=== PATIENT | male | born 1955 | race Caucasian/White ===

== ENCOUNTER → 2021-01-08 | Outpatient (CLI) | payer MEDICARE, OTHER | END | disposition home or self-care (01) | LOC: LABPAT 11:39 | PROVIDERS: ATTEND Orthopaedic Surgery | DX: Z01.812 Encounter for preprocedural laboratory examination (principal); M48.061 Spinal stenosis, lumbar region without neurogenic claudication; Z22.322 Carrier or suspected carrier of Methicillin resistant Staphylococcus aureus | CPT/HCPCS: 86850; 86900; 86901; 87070 ==

== ENCOUNTER 2021-01-20 05:36 | Day surgery (SDC) | payer MEDICARE, OTHER ==
[2021-01-16 09:47] VITALS: BMI 29.8
[~2021-01-20 05:36] MED LIST: ACETAMINOPHEN TAB 500 MG TAB PO PRN; DEXAMETHASONE SOD PHOSPHATE 4 MG/ML 1 ML VIAL IV ONE; GABAPENTIN 300 MG CAP PO PRN; LACTATED RINGERS 1,000 ML IV SCH; MIDAZOLAM 2 MG/2 ML VIAL IV PRN; ONDANSETRON 4 MG/2 ML VIAL IVP PRN; TRANEXAMIC ACID 1,000 MG in SODIUM CHLORIDE 0.9% 100 ML IVPB PRN
[2021-01-20] MEDS ORDERED: HYDROmorphone 0.5 MG/0.5 ML SYRINGE IVP PRN (07:00)
== END 2021-01-20 06:42 | disposition home or self-care (01) ==
LOC: OR 05:36
PROVIDERS: ATTEND Orthopaedic Surgery
DX: M48.061 Spinal stenosis, lumbar region without neurogenic claudication (principal); Z53.8 Procedure and treatment not carried out for other reasons; Z79.82 Long term (current) use of aspirin; Z79.899 Other long term (current) drug therapy; Z98.890 Other specified postprocedural states
CPT/HCPCS: 86850; 86900; 86901

== ENCOUNTER 2021-01-23 08:08 | Day surgery (SDC) | payer MEDICARE, OTHER ==
[2021-01-21 09:35] VITALS: BMI 29.0
--- NOTE | 2021-01-23 07:08 | P.HPOR ---
History of Present Illness H&P Date: 01/15/21 Chief Complaint: Leg pain, weakness [facility] Date of :[birth year] R14 Allergies: Age: 65 year Height: 5'6" Weight: 185 lbs BP:126/74 BMI: 29.86 kg/m2 X-Rays: New xrays taken in office Trauma or injury: No Work-related: No Location: posterior Hand dominance: right HISTORY: Physical Therapy: Yes How many sessions? several no help. Home exercise programs Did it help? No Injections: No Activity Modifications: Yes no help Brace: No 65-year-old male presents on referral from Dr. Lomax in [place] for evaluation of his low back pain and left lower extremity pain and weakness and difficulty with ambulation. The patient states about a week ago he had a flareup have fairly severe back pain and leg pain for which he visited his primary care doctor he was started on a Medrol Dosepak anti-inflammatory medications muscle relaxers and a home exercise program which did not help him at all. He presents today with increasing pain in his back increasing pain that travels down his left lower extremity around the groin area to the medial portion of his left knee and to the great toe on the left side. Patient states that his more painful to walk around he has a pain score of 10 currently while in the room sitting and standing he does not want to sit or stand for any period of time as it is very uncomfortable for him he lines of some weakness in his left lower extremity as well and difficulty with lifting his leg. He denies any bowel or bladder incontinence he denies any perineal numbness or tingling at th is time. The patients' past social, medical, family, surgical history, as well as review of systems, have been reviewed. Please refer to the Neurosurgery History and Physical form that has been scanned in to our electronic medical record system. 14 points review of systems completed and as stated in HPI, all other systems reviewed are negative. Social History: Reviewed, see appropriate section of the chart for details. P3 Family History: Reviewed, see appropriate section of the chart for details. P2 P1 Current Medications: Rx: aspirin 81 mg tablet,delayed release Ref: 0 Instructions: take 1 tablet (81 mg) by oral route once daily Rx: Trintellix Ref: 0 Instructions: 1 daily Rx: vitamin d , Ref: 0 Instructions: 1 daily P1 PHYSICAL EXAMINATION: General: Awake, alert, appropriate for age, in no acute distress. HEENT: No unusual neck masses around region of lateral neck triangle, thyroid, supraclavicular groove Heart: Regular rate and rhythm, normal S1, S2 and no murmur/gallop. Lungs: Clear to auscultation bilaterally with no use of accessory muscles. Extremities: Skin warm and dry without acute lesions, coloration, temperature, skin intact, no tenderness or erythema Integument: Hairy patches: Absent Dorsal skin dimples: Absent Cafe au lait spots: Absent Surgical incisions: none Palpation: Please see Pain drawing on Intake sheet for further detail. Midline spinal tenderness: No E6 Paralumbar tenderness: yes bilateral E6 Parathoracic tenderness: No E6 Buttocks tenderness: No E6 Special findings: None POSTURAL and MUSCULO-SKELETAL EVALUATION: Coronal Balance: Neutral Recumbent testing: Patient is able to lay flat on back Sagittal Balance: Neutral Shoulder Profile: [Level] Pelvic Girdle: [Level] Neck ROM: Unrestricted Lumbar ROM: Unrestricted Shoulder ROM: Symmetric in abduction, ER/IR Hip ROM: Symmetric in abduction, adduction, ER/IR Knee ROM: Symmetric and intact in Flexion / extension VASCULAR STATUS : LEFT RIGHT Wrist Pulses intact intact Pedal Pulses (Dors. pedis & post.tibialis) intact intact Color normal normal Edema Absent Absent NEUROLOGIC EXAMINATION: Mental Status: Awake and alert, fully oriented, with normal attention, concentration and memory, and fluent, appropriate speech. Cranial Nerves: I: Olfactory not tested. II: Visual acuity normal, no visual field deficit noted with confrontation. III,IV: Normal pupillary reflexes & intact extraocular movements without nystagmus. V,: Intact symmetrical facial sensation. VII: Intact symmetrical facial motor movement VIII: Hearing intact. IX,X: Intact gag, swallow, & normal voice. XI: Sternocleidomastoid, trapezius function intact. XII: Tongue midline with normal movements. L'hermitte's Sign: Negative / absent Spurling'Sign: Absent bilaterally. Cubital percussion test: Absent bilaterally. Cherelle-Tinel sign - Carpal region: Absent bilaterally. Straight Leg Raising: Absent bilaterally. Crossed straight leg raise: positive O8 MOTOR EXAM (0-5/5, N/T) STRENGTH RIGHT LEFT Shoulder Abd (not part of the BRIEN score) 5 5 Elbow Flexors 5 5 Elbow Extensor 5 5 Wrist Dorsiflexors 5 5 Finger Abductor 5 5 Track Inspector 5 5 Hip Flexor (Not part of BRIEN Motor score) 5 4 Knee Flexor 5 5 Knee Extensor 5 4 Ankle dorsiflexor 4 5 Ankle plantarflexion 5 4 Extensor hallucis 5 5 REFLEXES(0-4/2, NT) RIGHT LEFT Upper Extremities 2 2 Lower Extremities 2 2 Pathological Reflexes RIGHT LEFT Villatoro's Absent Absent Clonus Absent Absent Babinski Absent Absent # Indicates mechanical impairment Muscle appearance: Symmetrical Sensory system (0-4, N/T) Test type RU MEETA RL LL Joint-Position 2 2 2 2 Vibration 2 2 2 2 Pain & LT sense 2 2 2 2 Dermatomal Deficit: None None None None Gait and Functional Evaluation: Ambulatory aids: Independent Romberg's test: Intact bilaterally Toe heel walk / heel-toe walk intact while maintaining satisfactory balance? yes Squatting/straightening w/o assistance to a min of 60 degree knee flexion? yes Single leg stance: Trendelenburg sign negative bilaterally Hand and finger dexterity intact bilaterally? yes Disdiadochokinesis examination negative bilaterally? yes RADIOGRAPHIC STUDIES: XRAY: AP lateral flexion extension films a lumbar spine obtained and reviewed in the office today and this demonstrates stability through the lumbar spine. Overall alignment is well-maintained there is facet arthrosis from L3 to L5 which is noted and likely stenosis. No fracture dislocation is noted AP pelvis demonstrates congruent pelvis femoral acetabular joints no fracture dislocation MRI of the lumbar spine is reviewed this demonstrates severe stenosis L3 4 and L4 5 with extruded disc herniation L4 5 which is tracking superiorly along the L4 pedicle on the left-hand side. There is severe stenosis related to facet hypertrophy at L4 5 as well. There are no fractures or dislocations noted otherwise no lesions. IMPRESSION AND PLAN: It was my pleasure to have seen and examined Mr Morales. I reviewed the patient's clinical syndrome, physical findings, and imaging studies during the appointment today. It is my impression that the patient has a diagnosis of . 1. 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 LLE radiculopathy severe 4. LLE weakness I outlined the natural course history without intervention and various interventional options. Based on my findings I suggest the following course of action: 1.Gabapentin, Flexeril and pain control as needed. Pt tried conservative measures including medrol, exercisese and this has made his symptoms worse. He is having progressive symptoms at this time and warrents surgical intervention. We discussed injections, however with the degree ofhis stenosis this will likely not help as he needs mechanical decompression. He understood. 2. Schedule for Urgent L3-5 decompressive laminectomy. 3. PCP for clearance In our visit today Mr. Poe and I had a chance to go over my understanding of the patient's current condition, the natural course history without intervention and various interventional options. Questions were invited and answered, and the patient wishes to proceed as outlined above. Past Medical History Past Medical History: Cancer, Eye Disorder, Osteoarthritis (OA) Additional Past Medical History / Comment(s): Severe back pain, radiating down left buttock and leg since end of November 2020. Hx Skin Cancer on head 15 yrs ago. Best Disease (Eye Disorder, also called Vitelliform Macular Dysrophy). Covid Vaccines 09/24/20 and 10/15/20. History of Any Multi-Drug Resistant Organisms: None Reported Past Surgical History: Hernia Repair, Orthopedic Surgery Additional Past Surgical History / Comment(s): Left knee surgery, bilateral catarcats removed with lens implants, eye surgery for lazy eye, vasectomy, removal of skin cancer from head, ruputred tendon to left pinky finger repaired. Past Anesthesia/Blood Transfusion Reactions: No Reported Reaction Past Psychological History: Depression Smoking Status: Never smoker Past Alcohol Use History: Occasional Past Drug Use History: None Reported - Past Family History Father Family Medical History: Cancer Additional Family Medical History / Comment(s): Lung, Colon and Brain Cancer. Brother(s) Family Medical History: Cancer Additional Family Medical History / Comment(s): 2 brother's had skin cancer. Medications and Allergies Home Medications Medication Instructions Recorded Confirmed Type Aspirin [Adult Low Dose Aspirin EC] 81 mg PO DAILY 01/16/21 01/21/21 History Cholecalciferol (Vitamin D3) 125 mcg PO DAILY 01/16/21 01/21/21 History [Vitamin D3 (5000 Iu)] Cyclobenzaprine [Flexeril] 10 mg PO TID 01/16/21 01/21/21 History HYDROcodone/APAP 10-325MG [[place] 1 tab PO Q6HR PRN 01/16/21 01/21/21 History 10-325] Vortioxetine Hydrobromide 50 mg PO QAM 01/16/21 01/21/21 History [Trintellix] Allergies Allergy/AdvReac Type Severity Reaction Status Date / Time No Known Allergies Allergy Verified 01/21/21 12:42 Physical Examination Osteopathic Statement: *. No significant issues noted on an osteopathic structural exam other than those noted in the History and Physical/Consult. Assessment and Plan Plan: Surgical Procedure Risk Review Televisit 22-30 min Jase Morales is a 65 year old male presented for evaluation of sudden onset of Back pain LE pain and weakness. It was my pleasure to have seen and examined Mr. Morales and speak to him over the phone today. In our visit today we have had a chance to go over subjective complaints, physical examination findings and treatments, including the natural course history without intervention and various interventional options. The imaging demonstrates L3-5 stenosis with extruded disc herniation . On physical exam, Mr. Morales demonstrates Low back pain, weakness in LE and RLE pain . I explained to the patient that as his condition progresses it could cause continued symptoms, worsening weakness and symptoms . At this time, based on the patients imaging and physical exam, I recommend surgery in the form or a: L3-5 deompressive laminectomy . I discussed the risk and benefits of this procedure at length with Mr. Morales. The patient agreed to consider pursuing the procedure mentioned above. Plan: 1. L3-5 decompressive laminectomy and discectomy 2. Follow up with PCP for surgical clearance 3. Review of surgical risks and benefits as well as an educational packet on the proposed surgical procedure. Risks: All surgical procedures come with inherent risks, including those related to positioning, anesthesia, intraoperative findings, and postoperative complications. It is important to understand that surgery does not come with any guarantee of a successful outcome as complications and adverse events are always possible. The patient was given a handout in office today discussing the surgical procedure and risks associated with the intervention, both of which were discussed with the patient. These risks include but are not limited to the following: ? Experiencing same, different or even worse symptoms in back, neck, arms, or legs compared to before surgery. ? Requiring further surgery or other forms of treatment presently or at some time in the future at same or other levels of the intended spine surgery. ? On an extreme but fortunately relatively rare basis severe complication such as blindness, stroke, heart attack, temporary and/or permanent nerve injury, paralysis, coma, or may occur, sometimes without known explanation. ? Surgical complications may include but are not limited to risk of infection, fluid accumulation in the surgical dissection site, including a seroma or hematoma, that requires additional surgery, wound drainage, bleeding, new numbness or weakness, vision changes/loss, spinal fluid leakage, non-healing and/or infected incision, headaches, difficulty or inability to swallow, hoarseness, hemopneumothorax, pneumothorax, impotence, retrograde ejaculation, vaginal dryness; injury to nerves, spinal cord, blood vessels, lymphatics or other vital organs (i.e., bowel injury, injury to the great vessels); heterotopic bone formation; complications related to the hardware such as screws, rods, cages including misplaced hardware, device failure, instrumentation at the wrong spine level, hardware fracture/breakage, or hardware loosening; vertebral failure of the spinal column above or below the newly placed hardware; retained surgical instrumentations or devices and the need for further surgery. ? Medical risks of the planned spine surgery include but are not limited to generalized Infections to the whole body or local areas outside of the surgical site (sepsis), heart attack, bleeding, anaphylaxis, meningitis, seizure, epilepsy, hearing loss, burn ugarte, laceration of the head or other areas of the body, bruising, hypersensitivity of the skin, bladder over distension; allergic reaction; shoulder injury related to positioning; fat, blood and air clots to other areas of the body like heart, lungs, brain; failure of internal organs such as lungs, kidneys, liver and excessive bleeding. If blood transfusions are necessary, note that transfusions may cause intolerance reactions such as anaphylaxis or other complex reactions. Despite best efforts, the results of spine surgery might not heal in terms of bone, soft tissues such as skin, fascia, ligaments, and joints. Additionally, in order to achieve best possible results, spine surgery may be carried out beyond the initially planned levels and involve decompression, fusion including insertion of hardware at levels other than the original intended area of surgical interest change some portions of the procedure in order to ensure the best possible outcomes. With spine surgery and spinal fusion, there are different off label uses of instrumentation (devices, implants and hardware) as well as biological substances (bone morphogenic proteins, demineralized bone matrix) as well as using extra bone from allograft sources (i.e. cadaver bone) or autograft (iliac crest bone, ribs, or the spine itself). The patient has been given information about these practices and their inherent risks and benefits. [facility] Physician Assistants are medically trained surgical provider s who function in the outpatient, inpatient, and operating room setting under the direct supervision of the attending surgeon.They assist in the operating room with direct supervision of the attending surgeons. The patient has had a chance to review all the listed information, has been given print outs detailing this information, and has had all his/her questions answered to their satisfaction. It was my pleasure to have seen and examined Mr. Morales. In our visit today we have had a chance to go over my understanding of our patient's current condition, the natural course history without intervention and various interventional options. Questions were invited and answered, and the patient wishes to proceed as outlined above. I have seen and examined the patient for 25 minutes and we have spent more than 50% of the time in repeat and detailed counseling about the patient's condition, its natural course history with out and as much as can be predicted with surgery and re-review of various surgical treatment options. In conclusion,Mr. Morales and his spouse/partner requested we proceed with the above suggested surgery and are willing to accept risks and limitations of the suggested surgery as nature of the disease process and our best attempts at treatment for the condition. Thank you again for allowing us to be part of your patient's care. Please don't hesitate to contact me if you have any further questions. Signed and authenticated by: [facility] [address] [address]
[~2021-01-23 08:08] MED LIST changes: -LACTATED RINGERS 1,000 ML IV SCH; +LIDOCAINE 1% (10MG/ML) FOR IV START INTRADERMA PRN; -MIDAZOLAM 2 MG/2 ML VIAL IV PRN
[2021-01-23] MEDS: LACTATED RINGERS 1,000 ML IV SCH ×3 (08:47→16:18)
[2021-01-23] MEDS ORDERED: SUCCINYLCHOLINE CHLORIDE 100 MG/5 ML SYR IV ONE (10:42)
[2021-01-23] MEDS ORDERED: ceFAZolin 3,000 MG in SODIUM CHLORIDE 0.9% IRRIGATIO 3,000 ML IRRIGATION ONE (10:42)
[2021-01-23] MEDS ORDERED: LIDOCAINE 1% INJ 10MG/ML (20 ML MDV) ONE (10:42)
[2021-01-23] MEDS ORDERED: fentaNYL (PF) 50 MCG/ML 2 ML AMP ONE (10:42)
[2021-01-23] MEDS ORDERED: PHENYLEPHRINE-0.9% NACL SYG 1,000 MCG/10 ML SYRINGE ONE (10:42)
[2021-01-23] MEDS ORDERED: NEOSTIGMINE 1 MG/ML 10 ML VIAL ONE (10:42)
[2021-01-23] MEDS ORDERED: TRANEXAMIC ACID 1,000 MG/10 ML VIAL ONE (10:42)
[2021-01-23] MEDS ORDERED: SODIUM CHLORIDE 0.9% 100 ML BAG ONE (10:42)
[2021-01-23] MEDS ORDERED: PROPOFOL 10 MG/ML 20 ML VIAL IV ONE (10:42)
[2021-01-23] MEDS ORDERED: MIDAZOLAM 2 MG/2 ML VIAL ONE (10:42)
[2021-01-23] MEDS ORDERED: GLYCOPYRROLATE 0.2 MG/ML 2 ML VIAL ONE (10:42)
[2021-01-23] MEDS ORDERED: BUPIVACAINE (PF) 0.5% 30 ML VIAL SQ ONE (11:17)
[2021-01-23] MEDS ORDERED: LACTATED RINGERS 1,000 ML IV ONE (11:56)
[2021-01-23] MEDS ORDERED: VANCOMYCIN 1,000 MG VIAL MISCELLANE ONE (13:12)
--- NOTE | 2021-01-23 13:47 | XR ---
EXAMINATION TYPE: XR lumbar spine 2 or 3V DATE OF EXAM: 01/23/2021 COMPARISON: NONE HISTORY: Laminectomy TECHNIQUE: 3 fluoroscopic spot images of the lumbar spine were submitted for review. Total 16 seconds fluoroscopic time was reported. FINDINGS: Instrumentation of the lower lumbar spine is noted. For full details please see the operative note. IMPRESSION: Instrumentation of the lower lumbar spine is noted. For full details please see the operative note.
[2021-01-23] MEDS ORDERED: HYDROmorphone 1 MG/ML 1 ML SYRINGE IVP ONE (13:50)
[2021-01-23] MEDS: HYDROmorphone 1 MG/ML 1 ML SYRINGE IVP ONE ×2 (13:56→14:17)
[2021-01-23] MEDS ORDERED: SENNOSIDES-DOCUSATE SODIUM 1 EACH TAB PO PRN (14:10)
[2021-01-23] MEDS ORDERED: HYDROcodone/APAP 10-325MG 1 EACH TAB PO PRN (14:10)
[2021-01-23] MEDS ORDERED: HYDROmorphone 0.5 MG/0.5 ML SYRINGE IVP ONE ×2 (14:30→14:42)
--- NOTE | 2021-01-23 15:42 | FL ---
Fluoroscopy HISTORY: Lumbar laminectomy 16 seconds fluoroscopy time supplied to the referring clinician. 3 intraoperative C-arm images docum ent the procedure. See dictated report from orthopedic surgery.
--- NOTE | 2021-01-23 16:05 | P.CONS ---
History of Present Illness - Reason for Consult Consult date: 01/23/21 Medical management Requesting physician: Shaun Chavez - Chief Complaint Low back pain - History of Present Illness This is a 65-year-old male with no significant past medical history other than chronic low back pain who was admitted to the hospital for elective laminectomy. Patient is postoperative day #0. He is doing fairly well. His pain is well- controlled. No complications reported with surgery. I was asked to see him for medical management. Patient denies any medical history otherwise Review of Systems Review of system: 14 points review of systems were obtained and were negative except to what were mentioned in the HPI. Past Medical History Past Medical History: Cancer, Eye Disorder, Osteoarthritis (OA) Additional Past Medical History / Comment(s): Severe back pain, radiating down left buttock and leg since end of November 2020. Hx Skin Cancer on head 15 yrs ago. Best Disease (Eye Disorder, also called Vitelliform Macular Dysrophy). Covid Vaccines 09/24/20 and 10/15/20. History of Any Multi-Drug Resistant Organisms: None Reported Past Surgical History: Hernia Repair, Orthopedic Surgery Additional Past Surgical History / Comment(s): Left knee surgery, bilateral catarcats removed with lens implants, eye surgery for lazy eye, vasectomy, removal of skin cancer from head, ruputred tendon to left pinky finger repaired. Past Anesthesia/Blood Transfusion Reactions: No Reported Reaction Past Psychological History: Depression Smoking Status: Never smoker Past Alcohol Use History: Occasional Past Drug Use History: None Reported - Past Family History Father Family Medical History: Cancer Additional Family Medical History / Comment(s): Lung, Colon and Brain Cancer. Brother(s) Family Medical History: Cancer Additional Family Medical History / Comment(s): 2 brother's had skin cancer. Medications and Allergies Home Medications Medication Instructions Recorded Confirmed Type Aspirin [Adult Low Dose Aspirin EC] 81 mg PO DAILY 01/16/21 01/23/21 History Cholecalciferol (Vitamin D3) 125 mcg PO DAILY 01/16/21 01/23/21 History [Vitamin D3 (5000 Iu)] Cyclobenzaprine [Flexeril] 10 mg PO TID 01/16/21 01/23/21 History HYDROcodone/APAP 10-325MG [[place] 1 tab PO Q6HR PRN 01/16/21 01/23/21 History 10-325] Vortioxetine Hydrobromide 50 mg PO QAM 01/16/21 01/23/21 History [Trintellix] Allergies Allergy/AdvReac Type Severity Reaction Status Date / Time No Known Allergies Allergy Verified 01/23/21 08:52 Physical Exam Vitals: Vital Signs Temp Pulse Pulse Resp BP Pulse Ox 01/23/21 15:29 97.8 F 82 18 135/89 96 01/23/21 15:02 77 16 108/61 98 01/23/21 14:46 76 16 109/55 100 01/23/21 14:30 73 16 118/50 100 01/23/21 14:17 93 16 93/57 100 01/23/21 14:00 74 16 109/65 100 01/23/21 13:45 97.4 F L 79 12 98 01/23/21 09:00 98.1 F 91 16 156/89 97 Intake and Output 01/23/21 01/23/21 01/23/21 06:59 14:59 22:59 Intake Total 1751 600 Output Total 275 Balance 1476 600 Intake: IV 1751 600 Output: Urine 250 Estimated Blood Loss 25 Other: Weight 83.3 kg 83.3 kg General: The patient is awake and alert, in no distress Eye: there is normal conjunctiva bilaterally. Neck: The neck is supple, there is no JVD. Cardiovascular: Normal S1-S2, no S3-S4, no murmurs. Respiratory: Lungs clear to auscultation bilaterally Gastrointestinal: Abdomen is soft, nontender Musculoskeletal: There is no pedal edema. Neurological:. Speech is normal. Skin: Skin is warm and dry Assessment and Plan Assessment: This is a 65-year-old male with past medical history significant for lumbar spine severe stenosis with radiculopathy and disc herniation at L4/L5 was admitted to the hospital for elective lumbar laminectomy. Patient is postoperative day #0. Postoperative care, pain control, and DVT prophylaxis per primary team. I would order lab work in the morning. Today, I reviewed his medication list and lab work results. Continue current regimen. Thank you very much for the consultation. I will follow up on the patient closely with you.
--- NOTE | 2021-01-23 18:18 | CT ---
EXAMINATION TYPE: CT lumbar spine wo con DATE OF EXAM: 01/23/2021 COMPARISON: None HISTORY: Post Op Lspine surgery. CT DLP: 1064.6 mGycm Automated exposure control for dose reduction was used. Images obtained from the level of T12-S3 vertebra without contrast. There is laminectomy defect at L3 and L4. There is soft tissue air posteriorly from the recent surger y. There is also small air bubbles in the spinal canal that appears extradural. The sacroiliac joints appear intact. There is normal alignment of the vertebra. Disc spaces are fairly normal. I see no pa raspinal mass. IMPRESSION: Recent postsurgical changes. Extensive extradural air in the spinal canal. Exam limited with lack of contrast.
[2021-01-23] MEDS: HYDROcodone/APAP 5-325MG 1 EACH TAB PO PRN (19:38)
[2021-01-23] MEDS: CYCLOBENZAPRINE 5 MG TAB PO PRN (19:43)
[2021-01-24] MEDS: LACTATED RINGERS 1,000 ML IV SCH (02:15)
[2021-01-24] MEDS: HYDROcodone/APAP 5-325MG 1 EACH TAB PO PRN ×2 (05:06→11:26)
[2021-01-24] MEDS: CYCLOBENZAPRINE 5 MG TAB PO PRN ×2 (05:06→11:26)
[2021-01-24 08:13] VITALS: BP 111/66; PULSE 91; RESP 17; TEMP 99.2
[2021-01-24] MEDS ORDERED: CHOLECALCIFEROL 25 MCG (1000 IU) TABLET PO SCH (09:00)
[2021-01-24] MEDS ORDERED: VORTIOXETINE HYDROBROMIDE 20 MG TABLET PO SCH (09:00)
[2021-01-24] MEDS ORDERED: ASPIRIN 81 MG PO SCH (09:00)
[2021-01-24 09:50] LABS: African American GFR (CKD) 102.1 (60.0-200.0); Anion Gap 7.3 mmol/L (4.00-12.00); BUN/Creat Ratio 14.44 Ratio (12.00-20.00); Calcium 8.6 mg/dL (8.7-10.3); Carbon Dioxide 28.7 mmol/L (21.6-31.8); Non-African American GFR(CKD) 88.1 (60.0-200.0); Potassium 4.3 mmol/L (3.5-5.5)
[2021-01-24 10:11] LABS: Basophils # (A) 0.06 X 10*3/uL (0.00-0.10); Basophils % (A) 0.7 %; Eosinophils # (A) 0.09 X 10*3/uL (0.04-0.35); Eosinophils % (A) 1.1 %; HCT 41.8 % (39.6-50.0); HGB 13.9 g/dL (13.0-17.0); Lymphocytes % (A) 18.9 %; MCH 30.2 pg (27.0-32.0); MCHC 33.3 g/dL (32.0-37.0); MCV 90.9 fL (80.0-97.0); Mean Platelet Volume 9.3 fL (9.5-12.2); Monocytes # (A) 0.83 X 10*3/uL (0.20-1.00); Monocytes % (A) 9.8 %; Neutrophils # (A) 5.85 X 10*3/uL (1.80-7.70); Neutrophils % (A) 69.3 %; Platelet Count 329 X 10*3/uL (140-440); RDW 12.7 % (11.5-14.5); WBC 8.45 X 10*3/uL (4.50-10.00)
--- NOTE | 2021-01-24 10:39 | P.OP ---
Date of Procedure: 01/23/21 Preoperative Diagnosis: 1. 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 LLE weakness 4. LLE radiculopathy Postoperative Diagnosis: 1. 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 LLE weakness 4. LLE radiculopathy Procedure(s) Performed: 1. L3-L5 bilateral laminectomy and decompression with partial medial facetectomy and foraminotomy b/l 2. L4-5 sequestered disc removal. 3. L4-5 microdiscectomy 4. Dural repair with fat patch graft Implants: NOne Anesthesia: GETA Surgeon: Shaun Chavez Public Relations Professional #1: [employer] (Was present for the entire case and necessary due to the complexity of the case) Estimated Blood Loss (ml): 100 IV fluids (ml): 1,500 Urine output (ml): 200 Condition: stable Disposition: PACU Indications for Procedure: 65-year-old male presented to the office on an outpatient for oral for extreme left lower extremity pain weakness as well as neurogenic claudication symptoms. Patient was seen and evaluated MRI showed large sequestered disc L4 5 region with severe stenosis L3 to L5. We discussed operative versus nonoperative treatments he had tried conservative treatments in the form of medications therapy and in office injections which have not helped him and he was ready for surgical intervention at this time. We discussed the risks and benefits of surgery at length and he was amendable to surgical intervention. Operative Findings: Severe stenosis L3 to L5 with dural erosion L4 5 Large sequestered disc fragment just anterior to L4 exiting root Description of Procedure: The patient was seen and examined in the preoperative area. All preoperative protocols were followed. Informed consent was obtained risks and benefits of the procedure were discussed at length. Risks including bleeding infection damage to the surrounding tissue and risk of reoperation were discussed with the patient. Risk of anesthesia up to and including was a discussed with the patient. These are outlined in the risk review. They were willing to accept these risks and all of the risks of surgery. The patient was given a weight- based dose of antibiotics in the form of 2 g Ancef IVPB 1. The patient was seen and evaluated by the anesthesia team who deemed them fit for surgery. The site was marked, the patient was willing to proceed with the procedure. The patient was transferred to the operative suite by the Department of anesthesia. They were then drifted off to sleep by the department anesthesia GETA. The patient tolerated this well. [Davidson catheter was placed by nursing staff, atraumatically]. Once confirmation of lines and ventilation the patient was transferred to a prone Erickson Bubba table very carefully. All bony prominences including wrists, elbows, axilla, chest, hips, and thighs, and feet were padded very well. Special attention was paid to the genitalia and these were padded accordingly. SCDs were placed on bilateral lower extremities and wer e connected. Arms were well padded and placed [on arm boards up and out in the 90/90 position]. Once in position, again we confirmed good ventilation capabilities and that lines were running appropriately. The patient's lumbar spine was then exposed. 1010s were placed outlining the incision site. Standard alcohol was used to clean the incision site and allowed to dry. C-arm was used to biomark the patient and confirm level for incision which was marked with a skin marker. Operative briefing was performed with all teams and everyone in agreement to proceed. The patient was then prepped and draped in a normal sterile fashion. Timeout was then performed and all parties were in agreement with the procedure to be performed. Previously by marked area was then infiltrated with half percent Marcaine without epinephrine. We then use a skin knife to incise along this line midline and the lumbar spine. Left cautery dissection was taken down to the lumbar fascia which was identified and cleaned with a Daly midline fasciotomy was then performed subperiosteal dissection was taken over the L3 to L5 lamina exposing the facet joints however taking care to preserve the capsules. Lateral fluoroscopy with [place] 4 at the pars of L3 and L4 were then identified the levels. Once this areas were cleaned and visible we then performed a bilateral laminectomy using high-speed bur and rongeur. We performed partial medial facetectomies as well as foraminotomies. The ligamentum flavum was extremely hypertrophied in these areas and it was removed. We then performed bilateral foraminotomies at L3 4 L4 5. There was some dural erosion noted over the posterior aspect midline of the L4 5 region. The arachnoid was still intact however the external dural was not and so this was repaired. We performed a direct repair and a patch repair first the direct repair was performed with 6-0 Prolene. We then performed a Valsalva to 40 and there was no leakage was then placed a fat patch graft with 6-0 Prolene over this area. A Valsalva to 40 was performed again and there was no leakage of CSF. We then explored the L4 5 region we performed a microdiscectomy of L4-L5 and we found a large sequestered disc just anterior to the exiting L4 nerve root this was removed entirely which decompressed the foramen as well as that nerve root entirely. Once this was accomplished we performed meticulous hemostasis throughout using FloSeal patties as well as bipolar electrocautery. We then irrigated the wound with 3 L of antibiotic irrigation followed by 3 L of normal sterile saline. We then placed Surgicel over the dura and the patch graft followed by Tisseel. We then placed another layer of Surgicel and Tisseel. This sealed off the area we performed a Valsalva to 40 and there was no leakage of spinal fluid. We performed again meticulous hemostasis and it was decided at this point not to place a drain as there was no leakage. We then placed vancomycin deep within the wound and pro ceeded with closure in a layered fashion we performed first to a layered closure of the fascia with #1 Vicryl and 0 PDS were then closed the deep subcu with 0 Vicryl followed by 2-0 Vicryl in the superficial subcutaneous region followed by 2-0 nylon in a horizontal mattress fashion. The wound edges approximated very well. The wound was then cleaned and dressed sterilely with sterile Adaptic ABDs and foam tape. The patient was transferred back to his hospital bed atraumatically. Drain continued to hold suction and were in good position. Patient was then awakened and extubated by the department of anesthesia having tolerated the procedure very well with no complications. He was transferred to the postoperative care unit in stable condition.
--- NOTE | 2021-01-24 11:36 | P.PN ---
Subjective Progress Note Date: 01/24/21 Principal diagnosis: Postoperative day #1 1. 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 LLE weakness 4. LLE radiculopathy Patient was seen at bedside this morning. Patient was sitting up in bed and said he is ready to go home. He says he is in minimal pain and has been moving around the room a lot. Patient does mention he has some constipation which she doesn't like but his pain is under good control. Patient denies any new numbness/tingling. Patient does say he has a headache but this is pretty constant throughout changing positions from sitting to standing to lying down and vice versa. Patient denies chest pain, fever, shortness breath, nausea, vomiting, loss of bowel/bladder control, saddle anesthesia, change in vision. Objective - Vital Signs Vital signs: Vital Signs Temp 99.2 F 01/24/21 07:34 Pulse 91 01/24/21 07:34 Resp 17 01/24/21 07:34 BP 111/66 01/24/21 07:34 Pulse Ox 95 01/24/21 07:34 Intake & Output 01/23/21 01/24/21 01/24/21 18:59 06:59 18:59 Intake Total 2451 Output Total 675 Balance 1776 Weight 83.3 kg Intake: IV 2351 Oral 100 Output: Urine 650 Estimated Blood Loss 25 Other: Voiding Method Toilet # Voids 1 4 - Exam Incision is clean, dry, and intact. The foam tape is in good condition. Negative for any ecchymosis surrounding incision Sutures are in good place. Negative for any purulence, fluctuance Patient has full range of motion and strength in bilateral upper extremities; patient denies any new numbness/tingling in the legs. Right lower extremity full range of motion and strength. Left lower extremity increasing range of motion and hip flexion/extension and knee flexion/extension. Strength increasing in left leg Sensation is equal, bilateral, symmetric throughout exam of bilateral upper and lower extremities. Tensioning signs/neurovascular status - dorsalis pedis pulses and radial pulses intact, bilaterally, 2+. Negative Homans bilaterally. Negative clonus upon dorsiflexing feet bilaterally. Negative Isaías's bilaterally. Capillary refill below 3 seconds in bilateral upper and lower extremities - Labs CBC & Chem 7: 01/24/21 05:25 01/24/21 05:25 Labs: Abnormal Lab Results - Last 24 Hours (Table) 01/24/21 01/24/21 Range/Units 05:25 05:25 MPV 9.3 L (9.5-12.2) fL Calcium 8.6 L (8.7-10.3) mg/dL Microbiology - Last 24 Hours (Table) 01/23/21 14:00 Gram Stain - Preliminary Back Wound Culture - Preliminary 01/23/21 14:00 Anaerobic Culture - Preliminary Back Assessment and Plan Assessment: Postoperative day #1 1. 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 LLE weakness 4. LLE radiculopathy Plan: 1. Severe stenosis L3-5; Sequestered disc herniation L4-5; LLE weakness; LLE radiculopathy - surgery performed yesterday -L3-L5 bilateral laminectomy and decompression with partial medial facetectomy and foraminotomy b/l; L4-5 sequestered disc removal; L4-5 microdiscectomy; Dural repair with fat patch graft - patient's pain is been well under control and patient has been up and moving throughout this morning is ready for discharge home. 2. Pain management - stable at this time 3. GI/DVT prophylaxis- 4. Encourage incentive spirometer use 5. PT/OT weightbearing as tolerated 6. Discharge planning - plan to discharge home today, 01/24/2021. Time with Patient: Less than 30
--- NOTE | 2021-01-24 11:53 | P.DS ---
Providers Date of admission: 01/23/2021 Expected date of discharge: 01/24/21 Attending physician: Shaun Chavez, Consults: 01/23/21 14:34 Consult Physician Routine Consulting Provider: Jena Carvalho Consult Reason/Comments: Medical Management Do you want consulting provider notified?: Yes 01/23/21 14:35 Consult Physician Routine Consulting Provider: Jena Carvalho Consult Reason/Comments: Medical Management s/p L3-L5 Laminectomy and discectomy Do you want consulting provider notified?: Yes Primary care physician: Stated None Hospital Course: Date of admission: 01/23/2021 Date of discharge: 01/24/2021 Admission diagnosis: 1. 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 LLE weakness 4. LLE radiculopathy Discharge diagnosis: Same Attending physician: Dr. Chavez Surgical procedures: 1. L3-L5 bilateral laminectomy and decompression with partial medial facetectomy and foraminotomy b/l 2. L4-5 sequestered disc removal. 3. L4-5 microdiscectomy 4. Dural repair with fat patch graft Brief history: Patient is a 65-year-old male with a history of severe stenosis at L3-L5 and disc herniation at L4-L5. At this point patient has failed conservative treatment measures and has opted to proceed with a elective L3-L5 bilateral laminectomy and decompression with partial medial facetectomy and foraminotomy; L4-L5 sequestered disc removal; L4-L5 microdiscectomy. Hospital course: Details of patient's surgery can be found in operative report. Patient tolerated the procedure well and was subsequently transported to orthopedic floor. Patient's orthopedic and medical care was provided daily. Patient had daily laboratory tests performed for evaluation of overall blood counts. Patient had daily physical therapy to include strengthening range of motion as well as education with walker ambulation. Patient was noted to have a relatively uneventful postoperative course. Patient reported satisfactory pain control with oral pain medications by postoperative day 1. Patient showed satisfactory progress with physical therapy. Patient moved steadily through the program and had no difficulty meeting the goals by postoperative day 1. Given patient's otherwise satisfactory course and having met physical therapy goals, plan is to discharge patient home on postoperative day 1. Discharge condition/disposition: Patient will be discharged home in stable condition. Discharge medications: Instructions are given on resumption of patient's normal daily medications per primary care recommendation, in addition patient will be prescribed [place] 10 mg/325 mg; gabapentin 300 mg; senna; MiraLAX; Duricef 500 mg; Flexeril 10 mg. Spine Discharge and Recovery Instructions Medications: See medication list All medication refills should be obtained through your primary care doctor or your clinic spine surgeon. Please discuss prescription refills at your follow up appointment. Do not call the hospital for medication refills. Dressing: Leave your dressing in place for a total of 5 days post operatively. Then you may remove your dressing and leave open to air. Keep the area clean and if not able to keep area clean, then cover with sterile gauze and tape. Showering: You may shower 3 days after your procedure allowing soap and water to run over incision. Do not scrub. Do not soak. Blot dry. Follow up: Please confirm a follow up appointment with your surgeon 3 weeks post operatively. Please make an appointment to follow up with your PCP in 1-2 weeks after surgery for evaluation 3 phase, 3-week plan POST OP WEEKS 1-3 1. Lifting/carrying/pushing/pulling limited to less than 5 pounds. 2. Do not sit for longer than 15 minutes at one time. Get up and walk around. Prolonged sitting is NOT advised. If you lay down, see if you can tolerate laying down on you front (belly side) 3. Walk for periods of 15 minutes = 1 mile but no longer; do it multiple times times each day. 4. Ice your low back after activity. POST OP WEEKS 3-6 1. Lifting limited to less than 20 pounds. 2. Do not sit for longer than 30 minutes at a time. Frequently change positions. Use a sit-to stand workstation or take frequent breaks from sitting if you have returned to work. 3. Walk for 30 minutes each day. If possible, do these three or more times a day POST OP WEEKS 6+ At your 6-week appointment we will give you a physical therapy referral to focus on a core stabilization and strengthening program. You should also work on leg & buttock strengthening, hamstring & quadriceps stretching, and continue a low impact aerobic activity program such as swimming, walking, or riding a stationary bicycle. During the initial 6 weeks after your surgery, you are at the highest risk of re-injuring your spine. You should generally avoid BLTs (bending, lifting and twisting combination motions) and follow the above guidelines to reduce the chance of reinjury. You can anticipate post op appointments in our office at approximately 3 weeks and 6 weeks after your surgery. INCISION CARE: If your incision is not draining you do NOT need to cover it with a dressing. Keep your incision clean, dry and intact. In most cases, we apply skin glue, con or sutures to the incision at the time of surgery. This will be like a crust or have the appearance of a scab and will fall off in time on its own. The stitches or con need to be removed at 3 weeks post op appointment. You may begin to shower 3 days after surgery (this allows the glue to menendez well). However, please avoid scrubbing the incision site or peeling off any of the skin glue. This will ensure optimal healing of your incision. Also, during this time avoid soaking the incision area in water - this includes swimming pools, hot tubs or baths. No ointments, lotions or oils on the incision until your surgeon allows. Leave con, sutures or glue in place. Neurological dysfunction that comes on suddenly can also be a sign of a stroke. Below some common symptoms of a stroke are listed: B - balance difficulty such as sudden onset walking or leaning to one side - NEW E - eye problem such as sudden double vision or trouble seeing on one side - NEW F - Facial weakness or numbness on one side - NEW A - Arm or leg weakness or numbness on one side - NEW S - Slurred speech or difficulty with word finding - NEW T - Time is BRAIN! Call 911 as soon as you recognize these symptoms Diet: Consume a regular diet rich in vegetables and lean protein such as chicken or fish. You should consume in a ratio of approximately 20% fats|40% carbohydrates|40%protein. Vegetables, sweet potatoes, brown rice or quinoa are examples of good carbohydrates. Chips, white bread, cookies and sweets/sugar are examples of bad carbohydrates. Limit your bad carbs, go wild with good carbs. "Life's Simple 7" Guidelines as per [place] [employer] These will help you reclaim your life after surgery and roofer helper in your recovery, keeping in mind your restrictions. (1) Get Active. Physical activity can help people lose weight, control high blood pressure and cholesterol, feel emotionally better, and sleep better. (2) Control Cholesterol. Avoid a diet high in saturated fat, trans fat, & cholesterol. Limit whole milk & cream, ice cream, butter, egg yolks, processed meats (like sausage and hot dogs), and fatty meats. Choose healthy foods that are low in saturated fat, trans fat and cholesterol which include: Fruits and vegetables, fiber rich grain products (like whole grain pasta and brown rice), lean meat such as chicken, fish, nuts, seeds, and legumes. (3) Eat Better. Eat small portions. Shop at the grocery with a list and do not stray from it. Tips for a healthy diet include: Limit sodium intake to less than 1500mg daily, avoid prepackaged, processed, and fast foods, choose a diet rich in fruits, vegetables, and whole grain, high fiber foods, and limit saturated & cholesterol in your diet. (4) Manage Blood Pressure. If you have high blood pressure, you should have a cuff at home so that you can check your blood pressure regularly. Be sure you have a good cuff. An arm one is generally better than a wrist one. Bring the cuff to a doctor's appointment to validate that the measurements that your cuff are taking are accurate. Take your blood pressure twice daily when you are sitting down and relaxing. Record the numbers in a log and bring this log with you to your doctors' appointments. (5) Lose Weight if your BMI is above 25. A healthy BMI is between 19-25. To calculate Your BMI, you may use a Standard BMI Calculator on the NIH BMI website: <www.nhlbi.nih.gov/guidelines/obesity/BMI/bmicalc.htm>. Weigh oneself daily. If you are overweight, set a goal to lose weight. A pound a week loss if needed is a good target. (6) Reduce Blood Sugar. Limit foods and liquids with "added sugars." (Added sugars include sucrose, fructose, glucose, maltose, dextrose, high fructose corn syrup, corn syrup, concentrated fruit juice and honey). (7) Stop Smoking. If you smoke, quitting smoking is one of the best things that you can do for your health. Smoking increases your risk of heart attack, stroke, and peripheral vascular disease, which is a build-up of plaque in your arteries. Please discard all the cigarettes and lighters in your house. Have a plan for what you will do when you have the urge to smoke. Direct and second- hand smoke shortens your life as well as the lives of your family, friends and others around you. For your health and the health of those around you, please consider quitting! Proper Bending Body Mechanics: Maintain a wide stance with one foot slightly in front of the other. Keep your back straight. Bend utilizing the strength in your hips and knees. Do not bend at the waist. Maintain the lifted object at your waist-level close to your body. Avoid lifting weight that causes immediately pain or pain anywhere in the body afterwards. Smoking/Nicotine If there was ever one thing that you could do to increase your overall health, decrease your risk of cardiovascular problems by about 39% the second you make the choice, it is to STOP SMOKING. Your body's most instant gratification is the second you stop smoking. We have all heard the studies, read the articles but it is true, smoking is extremely bad for your overall health, and moreover it is detrimental to your bone health. Nicotine, IN ANY FORM, kills bone cells, prevents your body from healing fractures, and significantly prolongs healing after surgery. In spine surgery specifically, it increases your risk of not healing your bones to create a fusion and increases your risk of having a revision surgery due to this up to 60%. I know it is hard. I know it feels impossible. But there are ways. Take control of your life. We are here to help you through it. And when you are ready, ask us and we can direct you to help if you desire. Use the START Plan to Quit Smoking (please visit the Helpguide.org website listed below for more information): S = Set a quit date. Choose a date within the next 2 weeks, so you have enough time to prepare without losing your motivation to quit. If you mainly smoke at work, quit on the weekend, so you have a few days to adjust to the change. T = Tell family, friends, and co-workers that you plan to quit. Let your friends and family in on your plan to quit smoking and tell them you need their support and encouragement to stop. Look for a quit zheng who wants to stop smoking as well. You can help each other get through the rough times. A = Anticipate and plan for the challenges you'll face while quitting. Most people who begin smoking again do so within the first 3 months. You can help yourself make it through by preparing ahead for common challenges, such as nicotine withdrawal and cigarette cravings. R = Remove cigarettes and other tobacco products from your home, car, and work. Throw away all your cigarettes (no emergency pack!), lighters, ashtrays, and matches. Wash your clothes and freshen up anything that smells like smoke. Shampoo your car, clean your drapes and carpet, and steam your furniture. T = Talk to your doctor about getting help to quit. Your doctor can prescribe medication to help with withdrawal and suggest other alternatives. If you can't see a doctor, you can get many products over the counter at your local pharmacy or grocery store, including the nicotine patch, nicotine lozenges, and nicotine gum. Resources for Quitting Smoking: <https://www.[place].gov/documents/[facility]/Quit_Tobacco_Resources_f or_patients_313480_7.pdf> Supplementation: Take recommended dosages of Vitamin D and Calcium to help fortify your bones and help them to heal. See your health maintenance packet for dosages and recommended levels. DVT/VTE prophylaxis: You will be given compression stockings from the hospital. Wear these daily for the first two weeks after surgery. You may take them off at night. You may be prescribed a medication to help thin your blood. Take this as directed. If you are not prescribed this medication, early and frequent ambulation has been shown to be the best prophylaxis to deep vein thrombosis and sequelae related to this event. Assessment: 1. 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 LLE weakness 4. LLE radiculopathy Procedures: 1. L3-L5 bilateral laminectomy and decompression with partial medial facetectomy and foraminotomy b/l 2. L4-5 sequestered disc removal. 3. L4-5 microdiscectomy 4. Dural repair with fat patch graft Patient Condition at Discharge: Good Plan - Discharge Summary Discharge Rx Participant: Yes New Discharge Prescriptions: New Cyclobenzaprine [Flexeril] 10 mg PO TID PRN #40 tab PRN Reason: Spasms Gabapentin [Neurontin] 300 mg PO TID #42 cap Sennosides [Senna] 8.6 mg PO BID PRN #20 tablet PRN Reason: Constipation HYDROcodone/APAP 10-325MG [[place] 10-325] 1 tab PO Q6HR PRN #42 tab PRN Reason: Pain cefaDROXiL [Duricef] 500 mg PO DAILY #7 cap polyethylene glycoL 3350 [Miralax] 17 gm PO DAILY #5 packet No Action Aspirin [Adult Low Dose Aspirin EC] 81 mg PO DAILY Cholecalciferol (Vitamin D3) [Vitamin D3 (5000 Iu)] 125 mcg PO DAILY HYDROcodone/APAP 10-325MG [[place] 10-325] 1 tab PO Q6HR PRN PRN Reason: Pain Cyclobenzaprine [Flexeril] 10 mg PO TID Vortioxetine Hydrobromide [Trintellix] 50 mg PO QAM Discharge Medication List Aspirin [Adult Low Dose Aspirin EC] 81 mg PO DAILY 01/16/21 [History] Cholecalciferol (Vitamin D3) [Vitamin D3 (5000 Iu)] 125 mcg PO DAILY 01/16/21 [History] Cyclobenzaprine [Flexeril] 10 mg PO TID 01/16/21 [History] HYDROcodone/APAP 10-325MG [[place] 10-325] 1 tab PO Q6HR PRN 01/16/21 [History] Vortioxetine Hydrobromide [Trintellix] 50 mg PO QAM 01/16/21 [History] Cyclobenzaprine [Flexeril] 10 mg PO TID PRN #40 tab 01/24/21 [Rx] Gabapentin [Neurontin] 300 mg PO TID #42 cap 01/24/21 [Rx] HYDROcodone/APAP 10-325MG [[place] 10-325] 1 tab PO Q6HR PRN #42 tab 01/24/21 [Rx] Sennosides [Senna] 8.6 mg PO BID PRN #20 tablet 01/24/21 [Rx] cefaDROXiL [Duricef] 500 mg PO DAILY #7 cap 01/24/21 [Rx] polyethylene glycoL 3350 [Miralax] 17 gm PO DAILY #5 packet 01/24/21 [Rx] Follow up Appointment(s)/Referral(s): Shaun Chavez DO [Doctor of Osteopathic Medicine] - 2 Weeks (Call office for appt date/time. ) Patient Instructions/Handouts: Laminectomy (DC) Activity/Diet/Wound Care/Special Instructions: Spine Discharge and Recovery Instructions Date of Surgery: 01/23/2021 Diagnosis: L3 to L5 severe stenosis Procedure: L3 to L5 decompressive laminectomy with microdiscectomy of sequestered disc Medications: See list All medication refills should be obtained through your primary care doctor or your clinic spine surgeon. Please discuss prescription refills at your follow up appointment. Do not call the hospital for medication refills. Dressing: Leave your dressing in place for a total of 3 days post operatively. Then you may remove your dressing and leave open to air. Keep the area clean and if not able to keep area clean, then cover with sterile gauze and tape. Showering: You may shower 3 days after your procedure allowing soap and water to run over incision. Do not scrub. Do not soak. Blot dry. Follow up: Please confirm a follow up appointment with your surgeon 2 weeks post operatively. Please make an appointment to follow up with your PCP in 1-2 weeks after surgery for evaluation 3 phase, 3-week plan POST OP WEEKS 1-3 1. Lifting/carrying/pushing/pulling limited to less than 5 pounds. 2. Do not sit for longer than 15 minutes at one time. Get up and walk around. Prolonged sitting is NOT advised. If you lay down, see if you can tolerate laying down on you front (belly side) 3. Walk for periods of 15 minutes = 1 mile but no longer; do it multiple times times each day. 4.Ice your low back after activity. POST OP WEEKS 3-6 1. Lifting limited to less than 20 pounds. 2. Do not sit for longer than 30 minutes at a time. Frequently change positions. Use a sit-to stand workstation or take frequent breaks from sitting if you have returned to work. 3. Walk for 30 minutes each day. If possible, do these three or more times a day POST OP WEEKS 6+ At your 6-week appointment we will give you a physical therapy referral to focus on a core stabilization and strengthening program. You should also work on leg & buttock strengthening, hamstring & quadriceps stretching, and continue a low impact aerobic activity program such as swimming, walking, or riding a stationary bicycle. During the initial 6 weeks after your surgery, you are at the highest risk of re-injuring your spine. You should generally avoid BLTs (bending, lifting and twisting combination motions) and follow the above guidelines to reduce the chance of reinjury. You can anticipate post op appointments in our office at approximately 3 weeks and 6 weeks after your surgery. INCISION CARE: If your incision is not draining you do NOT need to cover it with a dressing. Keep your incision clean, dry and intact. In most cases, we apply skin glue, con or sutures to the incision at the time of surgery. This will be like a crust or have the appearance of a scab and will fall off in time on its own. The stitches or con need to be removed at 3 weeks post op appointment. You may begin to shower 3 days after surgery (this allows the glue to menendez well). However, please avoid scrubbing the incision site or peeling off any of the skin glue. This will ensure optimal healing of your incision. Also, during this time avoid soaking the incision area in water - this includes swimming pools, hot tubs or baths. No ointments, lotions or oils on the incision until your surgeon allows. Leave con, sutures or glue in place. Neurological dysfunction that comes on suddenly can also be a sign of a stroke. Below some common symptoms of a stroke are listed: B - balance difficulty such as sudden onset walking or leaning to one side - NEW E - eye problem such as sudden double vision or trouble seeing on one side - NEW F - Facial weakness or numbness on one side - NEW A - Arm or leg weakness or numbness on one side - NEW S - Slurred speech or difficulty with word finding - NEW T - Time is BRAIN! Call 911 as soon as you recognize these symptoms Diet: Consume a regular diet rich in vegetables and lean protein such as chicken or fish. You should consume in a ratio of approximately 20% fats|40% carbohydrates|40%protein. Vegetables, sweet potatoes, brown rice or quinoa are examples of good carbohydrates. Chips, white bread, cookies and sweets/sugar are examples of bad carbohydrates. Limit your bad carbs, go wild with good carbs. "Life's Simple 7" Guidelines as per [place] [employer] These will help you reclaim your life after surgery and roofer helper in your recovery, keeping in mind your restrictions. (1) Get Active. Physical activity can help people lose weight, control high blood pressure and cholesterol, feel emotionally better, and sleep better. (2) Control Cholesterol. Avoid a diet high in saturated fat, trans fat, & chol esterol. Limit whole milk & cream, ice cream, butter, egg yolks, processed meats (like sausage and hot dogs), and fatty meats. Choose healthy foods that are low in saturated fat, trans fat and cholesterol which include: Fruits and vegetables, fiber rich grain products (like whole grain pasta and brown rice), lean meat such as chicken, fish, nuts, seeds, and legumes. (3) Eat Better. Eat small portions. Shop at the grocery with a list and do not stray from it. Tips for a healthy diet include: Limit sodium intake to less than 1500mg daily, avoid prepackaged, processed, and fast foods, choose a diet rich in fruits, vegetables, and whole grain, high fiber foods, and limit saturated & cholesterol in your diet. (4) Manage Blood Pressure. If you have high blood pressure, you should have a cuff at home so that you can check your blood pressure regularly. Be sure you have a good cuff. An arm one is generally better than a wrist one. Bring the cuff to a doctor's appointment to validate that the measurements that your cuff are taking are accurate. Take your blood pressure twice daily when you are sitting down and relaxing. Record the numbers in a log and bring this log with you to your doctors' appointments. (5) Lose Weight if your BMI is above 25. A healthy BMI is between 19-25. To calculate Your BMI, you may use a Standard BMI Calculator on the NIH BMI websi te: <www.nhlbi.nih.gov/guidelines/obesity/BMI/bmicalc.htm>. Weigh oneself daily. If you are overweight, set a goal to lose weight. A pound a week loss if needed is a good target. (6) Reduce Blood Sugar. Limit foods and liquids with "added sugars." (Added sugars include sucrose, fructose, glucose, maltose, dextrose, high fructose corn syrup, corn syrup, concentrated fruit juice and honey). (7) Stop Smoking. If you smoke, quitting smoking is one of the best things that you can do for your health. Smoking increases your risk of heart attack, stroke, and peripheral vascular disease, which is a build-up of plaque in your arteries. Please discard all the cigarettes and lighters in your house. Have a plan for what you will do when you have the urge to smoke. Direct and second-hand smoke shortens your life as well as the lives of your family, friends and others around you. For your health and the health of those around you, please consider quitting! Proper Bending Body Mechanics: Maintain a wide stance with one foot slightly in front of the other. Keep your back straight. Bend utilizing the strength in your hips and knees. Do not bend at the waist. Maintain the lifted object at your waist-level close to your body. Avoid lifting weight that causes immediately pain or pain anywhere in the body afterwards. Smoking/Nicotine If there was ever one thing that you could do to increase your overall health, decrease your risk of cardiovascular problems by about 39% the second you make the choice, it is to STOP SMOKING. Your body's most instant gratification is the second you stop smoking. We have all heard the studies, read the articles but it is true, smoking is extremely bad for your overall health, and moreover it is detrimental to your bone health. Nicotine, IN ANY FORM, kills bone cells, prevents your body from healing fractures, and significantly prolongs healing after surgery. In spine surgery specifically, it increases your risk of not healing your bones to create a fusion and increases your risk of having a revision surgery due to this up to 60%. I know it is hard. I know it feels impossible. But there are ways. Take control of your life. We are here to help you through it. And when you are ready, ask us and we can direct you to help if you desire. Use the START Plan to Quit Smoking (please visit the Helpguide.org website listed below for more information): S = Set a quit date. Choose a date within the next 2 weeks, so you have enough time to prepare without losing your motivation to quit. If you mainly smoke at work, quit on the weekend, so you have a few days to adjust to the change. T = Tell family, friends, and co-workers that you plan to quit. Let your friends and family in on your plan to quit smoking and tell them you need their support and encouragement to stop. Look for a quit zheng who wants to stop smoking as well. You can help each other get through the rough times. A = Anticipate and plan for the challenges you'll face while quitting. Most people who begin smoking again do so within the first 3 months. You can help yourself make it through by preparing ahead for common challenges, such as nicotine withdrawal and cigarette cravings. R = Remove cigarettes and other tobacco products from your home, car, and work. Throw away all your cigarettes (no emergency pack!), lighters, ashtrays, and matches. Wash your clothes and freshen up anything that smells like smoke. Shampoo your car, clean your drapes and carpet, and steam your furniture. T = Talk to your doctor about getting help to quit. Your doctor can prescribe medication to help with withdrawal and suggest other alternatives. If you can't see a doctor, you can get many products over the counter at your local pharmacy or grocery store, including the nicotine patch, nicotine lozenges, and nicotine gum. Resources for Quitting Smoking: <https://www.[place].gov/documents/[facility]/Quit_Tobacco_Resources_for_patients_313 480_7.pdf> Supplementation: Take recommended dosages of Vitamin D and Calcium to help fortify your bones and help them to heal. See your health maintenance packet for dosages and recommended levels. DVT/VTE prophylaxis: You will be given compression stockings from the hospital. Wear these daily for the first two weeks after surgery. You may take them off at night. You may be prescribed a medication to help thin your blood. Take this as directed. If you are not prescribed this medication, early and frequent ambulation has been shown to be the best prophylaxis to deep vein thrombosis and sequelae related to this event. Discharge Disposition: HOME WITH HOME HEALTH SERVICES
--- NOTE | 2021-01-24 14:13 | P.PN ---
Subjective Progress Note Date: 01/24/21 Patient is doing well today. He is looking forward to be discharged home. No acute events overnight. Objective - Vital Signs Vital signs: Vital Signs Temp 99.2 F 01/24/21 07:34 Pulse 91 01/24/21 07:34 Resp 17 01/24/21 07:34 BP 111/66 01/24/21 07:34 Pulse Ox 95 01/24/21 07:34 Intake & Output 01/23/21 01/24/21 01/24/21 18:59 06:59 18:59 Intake Total 2451 Output Total 675 Balance 1776 Weight 83.3 kg Intake: IV 2351 Oral 100 Output: Urine 650 Estimated Blood Loss 25 Other: Voiding Method Toilet # Voids 1 4 - Exam General: The patient is awake and alert, in no distress Eye: there is normal conjunctiva bilaterally. Neck: The neck is supple, there is no JVD. Cardiovascular: Normal S1-S2, no S3-S4, no murmurs. Respiratory: Lungs clear to auscultation bilaterally Gastrointestinal: Abdomen is soft, nontender Musculoskeletal: There is no pedal edema. Neurological:. Speech is normal. 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 Patient is postoperative day #1. He is doing fairly well and pain is well controlled. He was up ambulating with no difficulty. Plan is for discharge home today. Today, I reviewed his medication list and lab work results. Patient is medically cleared for discharge home.
== END 2021-01-24 12:44 | disposition home health service (06) ==
LOC: OR 08:08 → 4SSUR 13:34 → OR 01-24 12:44
PROVIDERS: ATTEND Orthopaedic Surgery
DX: M48.061 Spinal stenosis, lumbar region without neurogenic claudication (principal); M51.16 Intervertebral disc disorders with radiculopathy, lumbar region; G89.29 Other chronic pain; M19.90 Unspecified osteoarthritis, unspecified site; Z85.828 Personal history of other malignant neoplasm of skin; F32.9 Major depressive disorder, single episode, unspecified; Z79.899 Other long term (current) drug therapy; M54.5 Low back pain
CPT/HCPCS: 97161; 88305; 80048; 85025; 88311; 87070; 87205; 87075; 72100; 72131; 63047; 63048; C1762 ×3; J2250; J3370; J2710; J0690 ×2; J2405; J2001; J3010; J1170 ×2; J2370; J0330; J2704